=== PATIENT | female | born 1995 | race Caucasian/White ===

== ENCOUNTER 2016-11-21 00:18 | Emergency (ER) | payer BC ==
[~2016-11-21] VITALS: Ht 170.2 cm; Wt 54.4 kg
--- NOTE | 2016-11-21 01:07 | Emergency Room Report ---
History of Present Illness General Chief Complaint: Alcohol Intoxication Source: Patient Present Illness HPI Patient brought in by EMS after drinking a lot of alcohol. She was out with her sister. The sister denies that she was doing any other drugs. She denies suicidal or homicidal ideation. Patient was vomiting and received Zofran by EMS. Her Accu-Chek was 125. There is no evidence of any head trauma. Patient on control. No blood, melena. No URI sy. Slight headache. Allergies: Coded Allergies: No Known Allergies (Unverified , 11/21/16) Patient History Past Medical History: see triage record Social History: Reports: alcohol use Social History Narrative with sister Last Menstrual Period: UNKNOWN Now: No Reviewed Nursing Documentation: PMH: Agreed, PSxH: Agreed Nursing Documentation-PMH Past Medical History: No Stated History Review of Systems All Other Systems: negative except mentioned in HPI Physical Exam Vital Signs Date Time Temp Pulse Resp B/P Pulse Ox O2 Delivery O2 Flow Rate FiO2 11/21/16 00:12 98.1 96 18 145/73 96 Room Air Sp02 EP Interpretation: reviewed, normal General Appearance: lethargic, other - GCS = 13 (eyes closed, not answer why here) Head: normocephalic, atraumatic Eyes: bilateral eye PERRL, bilateral eye Scleral Injection ENT: moist mucus membranes - + gag Neck: supple Respiratory: lungs clear, normal breath sounds Cardiovascular #1: regular rate, rhythm Cardiovascular #2: 2+ radial (L) Gastrointestinal: non tender, abnormal bowel sounds - decreased Musculoskeletal: back normal, gait/station normal, normal range of motion Neurologic: motor strength/tone normal, DTRs symmetric, sensory intact, other - ataxia and nystagmus, + gag, oriented - not answer Psychiatric: other - labile Skin: normal inspection, normal color Medical Decision Making Diagnostic Impression: Primary Impression: Acute alcoholic intoxication ER Course Patient with lethargy and vomiting after alcohol ingestion. Ddx: alcohol intoxication/toxicity, gastritis, depression amongst others. No evidence of head trauma. Plan to check urine and treat with observation and IV hydration. Family is here. Discussed plan for IV hydration and observation. Patient more calm. Not vomiting. Patient markedly improved, ambulatory, denies SI or HI. Patient stable for outpatient observation and treatment. Family comfortable with observation. Last Vital Signs Date Time Temp Pulse Resp B/P Pulse Ox O2 Delivery O2 Flow Rate FiO2 11/21/16 02:05 98.1 76 18 101/70 96 Room Air Status: improved Disposition: HOME, SELF-CARE Condition: Improved Referrals: NOT CHOSEN IPA/,REFERRING (PCP) Spike Pennington M.D. November 21, 2016 01:07
[2016-11-21 01:52] VITALS: BP 101/70
[2016-11-21 02:05] VITALS: BP 101/70
== END 2016-11-21 02:06 | disposition home or self-care (01) ==
LOC: EDBD 00:18 → EMR 00:53
DX: F10.129 Alcohol abuse with intoxication, unspecified (principal); Z79.3 Long term (current) use of hormonal contraceptives; R51 Headache
CPT/HCPCS: 96360; 96374